=== PATIENT | female | born 1940 | race Caucasian/White ===

== ENCOUNTER 2021-03-04 09:55 | Emergency (ER) | payer OTHER ==
[2021-03-04 10:22] VITALS: TEMP 98.2; BMI 29.8
[2021-03-04 12:31] LABS: BASO % 0.3 % (0-2.0); EOS % 0.1 % (0-4.5); HEMATOCRIT 41.4 % (32.4-45.2); HEMOGLOBIN 13.9 GM/dL (10.7-15.3); LYMPH % 4.9 % (8-40); MCH 31.1 pg (25.7-33.7); MCHC 33.5 g/dl (32.0-36.0); MEAN CELL VOLUME 92.7 fl (80-96); MONO % 8.3 % (3.8-10.2); NEUT % 86.4 % (42.8-82.8); PLATELET COUNT 306 10^3/uL (134-434); RBC 4.47 M/mm3 (3.60-5.2); RDW 13.8 % (11.6-15.6); WHITE BLOOD COUNT 12.5 K/mm3 (4.0-10.0)
[2021-03-04 12:35] LABS: INR 1.03 (0.83-1.09)
[2021-03-04 12:49] LABS: CHLORIDE 106 mmol/L (98-107); SODIUM 142 mmol/L (136-145)
[2021-03-04 12:53] LABS: CALCIUM 9.2 mg/dL (8.5-10.1)
[2021-03-04 12:54] LABS: ALBUMIN 3.7 g/dl (3.4-5.0); ANION GAP 11 MMOL/L (8-16); CO2 26 mmol/L (21-32); GLUCOSE,RANDOM 90 mg/dL (74-106); MAGNESIUM 2.5 mg/dL (1.8-2.4)
[2021-03-04 12:57] LABS: CREATININE 0.9 mg/dL (0.55-1.3); SGOT/AST 40 U/L (15-37); SGPT/ALT 25 U/L (13-61)
[2021-03-04 12:58] LABS: BILIRUBIN,TOTAL 0.6 mg/dL (0.2-1)
[2021-03-04 12:59] LABS: TOT PROT 7.6 g/dl (6.4-8.2)
[2021-03-04 13:00] LABS: ALK PHOS 75 U/L (45-117)
[2021-03-04] MEDS ORDERED: ACETAMINOPHEN 500 MG TABLET (FP) PO ONE (14:49)
[2021-03-04] MEDS ORDERED: ACETAMINOPHEN 325 MG TABLET (FP) ONE (15:03)
[2021-03-04 16:13] VITALS: BP 148/74; PULSE 72
== END 2021-03-04 16:38 | disposition home or self-care (01) ==
LOC: JER 09:55
DX: R53.1 Weakness (principal); W19.XXXA Unspecified fall, initial encounter
CPT/HCPCS: 36415; 70450-TC; 71045-TC-FY; 72125-TC; 72170-TC-FY; 73564-TC-LT-FY; 73564-TC-RT-FY; 73610-TC-RT-FY; 73630-TC-RT-FY; 80053; 82550; 82553; 83735; 84484; 85025; 85610; 85730; 87086; 87186; 93005; 93010; 99285-25; C9803; U0003; U0005